=== PATIENT | female | born 1985 | race Caucasian/White ===

== ENCOUNTER 2016-12-24 13:53 | Emergency (ER) | payer BC, MEDICAID ==
[2016-12-24 14:05] VITALS: BP 123/74; PULSE 97; RESP 18; TEMP 98.5; O2SAT 100
--- NOTE | 2016-12-24 15:36 | C.PDOC ---
History Of Present Illness 31 y/o female presents to ED with complaints of being bit by insect on right upper eyelid with associating itching and swelling. Patient is also requesting test, states she has taken two home tests and have been positive but is still unsure. Patient denies clifford, fever, chills, n/v/d or any other complaints at this time. Time Seen by Provider: 12/24/16 14:23 Chief Complaint (Nursing): Eye Problem History Per: Patient History/Exam Limitations: no limitations Onset/Duration Of Symptoms: Days Current Symptoms Are (Timing): Still Present Associated Symptoms: Pain, Swelling, Itching Past Medical History Reviewed: Historical Data, Nursing Documentation, Vital Signs Vital Signs: Last Vital Signs Temp 98.5 F 12/24/16 14:01 Pulse 97 H 12/24/16 14:01 Resp 18 12/24/16 16:04 BP 123/74 12/24/16 14:01 Pulse Ox 100 12/24/16 15:55 - Medical History PMH: Asthma Family History: States: Unknown Family Hx - Social History Hx Alcohol Use: No Hx Substance Use: No - Immunization History Hx Tetanus Toxoid Vaccination: No Hx Influenza Vaccination: No Hx Pneumococcal Vaccination: No Review Of Systems Except As Marked, All Systems Reviewed And Found Negative. Constitutional: Negative for: Fever, Chills Eyes: Positive for: Pain, Eyelid Inflammation Gastrointestinal: Negative for: Nausea, Vomiting, Diarrhea Neurological: Negative for: Headache Physical Exam - Physical Exam Appears: Non-toxic, No Acute Distress Skin: Normal Color, Warm Head: Atraumatic, Normacephalic Eye(s): bilateral: PERRL, EOMI, right: Other (Right upper eyelid swelling, no injected conjuctiva) Ear(s): Bilateral: Normal Oral Mucosa: Moist Gastrointestinal/Abdominal: Soft, No Tenderness, No Guarding, No Rebound Extremity: Normal ROM, Capillary Refill (<2 seconds) Neurological/Psych: Oriented x3 ED Course And Treatment O2 Sat by Pulse Oximetry: 100 (RA) Pulse Ox Interpretation: Normal Medical Decision Making Medical Decision Making: Patient was given Benadryl for inflammatory reaction Test done with + results Patient was discharged and advised to return if symptoms do not improve. Disposition Counseled Patient/Family Regarding: Studies Performed, Diagnosis - Disposition Referrals: [facility] [Outside] Disposition: HOME/ ROUTINE Disposition Time: 15:35 Condition: STABLE Forms: General Discharge Instructions - POA Present On Arrival: None - Clinical Impression Clinical Impression: Insect bite - Scribe Statement The provider has reviewed the documentation as recorded by the Vikas Bustamante All medical record entries made by the Baljinderibneal were at my direction and personally dictated by me. I have reviewed the chart and agree that the record accurately reflects my personal performance of the history, physical exam, medical decision making, and the department course for this patient. I have also personally directed, reviewed, and agree with the discharge instructions and disposition.
== END 2016-12-24 16:05 | disposition home or self-care (01) ==
LOC: C.ER 13:53
DX: S00.261A Insect bite (nonvenomous) of right eyelid and periocular area, initial encounter (principal); W57.XXXA Bitten or stung by nonvenomous insect and other nonvenomous arthropods, initial encounter; Y92.9 Unspecified place or not applicable; Z32.01 Encounter for pregnancy test, result positive

== ENCOUNTER 2017-01-14 17:25 | Emergency (ER) | payer BC, MEDICAID ==
[2017-01-14] MEDS ORDERED: Sodium Chloride 0.9% 1,000 ML IV ONE (18:10)
[2017-01-14] MEDS ORDERED: Sodium Chloride 0.9% 1,000 ML ONE (18:24)
[2017-01-14 18:29] LABS: BASO # 0.1 K/uL (0.0-0.2); BASO % 0.6 % (0.0-2.0); EOS # 0.1 K/uL (0.0-0.7); EOS % 0.8 % (0.0-4.0); HEMATOCRIT 36.1 % (34.0-47.0); LYMPH # 2.3 K/uL (1.0-4.3); LYMPH % 27.5 % (20.0-40.0); MEAN CORPUSCULAR HEMOGLOBIN 29.5 pg (27.0-31.0); MEAN CORPUSCULAR HGB CONC 34.4 g/dL (33.0-37.0); MEAN PLATELET VOLUME 8.1 fL (7.2-11.7); MONO # 0.5 K/uL (0.0-0.8); MONO % 6.3 % (0.0-10.0); RED CELL DISTRIBUTION WIDTH 13.8 % (11.5-14.5); WHITE BLOOD COUNT 8.3 K/uL (4.8-10.8)
--- NOTE | 2017-01-14 18:31 | C.PDOC ---
History Of Present Illness 31-year-old female (), presents to the emergency department with complaints of nausea and non-bloody/non-bilious vomiting for the past week. patient states she is six weeks , and has limited relief with over the counter medication. Patients first OBGYN appointment in 01/29. Denies any vaginal bleeding/discharge, abdominal pain or any other associated symptoms. No other complaints at this time. Time Seen by Provider: 01/14/17 17:58 Chief Complaint (Nursing): GI Problem History Per: Patient History/Exam Limitations: no limitations Onset/Duration Of Symptoms: Days Current Symptoms Are (Timing): Still Present Severity: Moderate Past Medical History Reviewed: Historical Data, Nursing Documentation, Vital Signs Vital Signs: Last Vital Signs Temp 98.7 F 01/14/17 17:36 Pulse 96 H 01/14/17 17:36 Resp 18 01/14/17 17:36 BP 117/81 01/14/17 17:36 Pulse Ox 99 01/14/17 18:32 - Medical History PMH: Asthma, Migraine Family History: States: Unknown Family Hx - Social History Hx Alcohol Use: No Hx Substance Use: No - Immunization History Hx Tetanus Toxoid Vaccination: No Hx Influenza Vaccination: No Hx Pneumococcal Vaccination: No Review Of Systems Except As Marked, All Systems Reviewed And Found Negative. Constitutional: Negative for: Fever, Chills Cardiovascular: Negative for: Chest Pain Respiratory: Negative for: Shortness of Breath Gastrointestinal: Positive for: Nausea, Vomiting. Negative for: Abdominal Pain , Hematochezia, Hematemesis Musculoskeletal: Negative for: Back Pain Neurological: Negative for: Weakness, Numbness, Headache, Dizziness Physical Exam - Physical Exam Appears: Non-toxic, No Acute Distress Skin: Warm, Dry, No Rash Head: Atraumatic, Normacephalic Eye(s): bilateral: Normal Inspection, PERRL, EOMI Nose: Normal Oral Mucosa: Moist Lips: Normal Appearing Neck: Normal ROM Cardiovascular: Rhythm Regular, No Murmur Respiratory: Normal Breath Sounds, No Accessory Muscle Use Gastrointestinal/Abdominal: Soft, No Tenderness Extremity: Normal ROM Neurological/Psych: Oriented x3, Normal Speech ED Course And Treatment - Laboratory Results Result Diagrams: 01/14/17 18:21 01/14/17 18:21 O2 Sat by Pulse Oximetry: 99 Disposition - Disposition Disposition Time: 19:00 Condition: STABLE - Clinical Impression Clinical Impression: Hyperemesis arising during , Migraine - Scribe Statement The provider has reviewed the documentation as recorded by the Scribe (Power Carroll) All medical record entries made by the Scribe were at my direction and personally dictated by me. I have reviewed the chart and agree that the record accurately reflects my personal performance of the history, physical exam, medical decision making, and the department course for this patient. I have also personally directed, reviewed, and agree with the discharge instructions and disposition. Physician Patient Turnover Patient Signed Over To: Milagros Mcnair Handoff Comments: FU REASSESS, DISPO
[2017-01-14 18:45] LABS: CHLORIDE 102 mmol/L (98-107); SODIUM 141 mmol/L (132-148)
[2017-01-14 18:47] LABS: AST/SGOT 27 U/L (14-36); BILIRUBIN,TOTAL 0.5 mg/dL (0.2-1.3); CARBON DIOXIDE 24 mmol/L (22-30); GFR AFRICAN-AMERICAN > 60
[2017-01-14 18:48] LABS: ALB/GLOB RATIO 1.3 (1.0-2.1); ALKALINE PHOSPHATASE 35 U/L (38-126); ALT/SGPT 22 U/L (9-52); BLOOD UREA NITROGEN 13 mg/dL (7-17); CALCIUM 9.1 mg/dl (8.6-10.4); GLUCOSE,RANDOM 78 mg/dL (65-105); TOTAL PROTEIN 6.6 g/dL (6.3-8.3)
[2017-01-14 19:09] LABS: RBC URINE 3 /hpf (0-3); URINE BACTERIA OCC (<OCC); URINE BILIRUBIN NEGATIVE (NEGATIVE); URINE BLOOD NEGATIVE (NEGATIVE); URINE COLOR Yellow (YELLOW); URINE GLUCOSE (UA) NORMAL (Normal); URINE KETONE NEGATIVE (NEGATIVE); URINE LEUKOCYTE ESTERASE 1+ Leu/uL (Negative); URINE PROTEIN NEGATIVE (NEGATIVE); URINE UROBILINOGEN NORMAL mg/dL (0.2-1.0); WBC URINE 7 /hpf (0-5)
[2017-01-14 20:18] VITALS: BP 92/65; PULSE 83; RESP 20; TEMP 97.7; O2SAT 100
== END 2017-01-14 20:18 | disposition home or self-care (01) ==
LOC: C.ER 17:25
DX: O21.0 Mild hyperemesis gravidarum (principal); O26.891 Other specified pregnancy related conditions, first trimester; G43.909 Migraine, unspecified, not intractable, without status migrainosus; Z3A.01 Less than 8 weeks gestation of pregnancy
CPT/HCPCS: 80053; 81001; 84702; 85025; 96361; 96374; 99284; J2405; J7040

== ENCOUNTER 2017-01-28 21:09 | Observation (INO) | payer BC ==
--- NOTE | 2017-01-28 21:24 | C.PDOC ---
History Of Present Illness Patient who is 8 weeks , P:1, presents to the ER with a complaint of vomiting and not being bale to tolerate PO. Denies fever or chills. Time Seen by Provider: 01/28/17 21:24 Chief Complaint (Nursing): Abdominal Pain History Per: Patient History/Exam Limitations: no limitations Onset/Duration Of Symptoms: Days Current Symptoms Are (Timing): Still Present Severity: Moderate Pain Scale Rating Of: 4 (Discomfort) Radiation Of Pain To:: None Quality Of Discomfort: Unable To Describe Associated Symptoms: Vomiting. denies: Fever, Chills Exacerbating Factors: None Alleviating Factors: None Recent travel outside of the [place]: No Abnormal Vaginal Bleeding: No Past Medical History Reviewed: Historical Data, Nursing Documentation, Vital Signs Vital Signs: Last Vital Signs Temp 98 F 01/29/17 00:04 Pulse 90 01/29/17 00:04 Resp 16 01/29/17 00:04 BP 111/69 01/29/17 00:04 Pulse Ox 96 01/29/17 02:41 - Medical History PMH: Asthma, Migraine Surgical History: No Surg Hx Family History: States: Unknown Family Hx - Social History Hx Alcohol Use: No Hx Substance Use: No - Immunization History Hx Tetanus Toxoid Vaccination: No Hx Influenza Vaccination: No Hx Pneumococcal Vaccination: No Review Of Systems Constitutional: Negative for: Fever, Chills Gastrointestinal: Positive for: Vomiting Physical Exam - Physical Exam Appears: Non-toxic Skin: Warm, Dry Head: Atraumatic, Normacephalic Oral Mucosa: Moist Lips: Other (Dry) Chest: Symmetrical, No Tenderness Cardiovascular: Rhythm Regular, No Murmur Respiratory: No Rales, No Rhonchi, No Wheezing Gastrointestinal/Abdominal: Soft, No Tenderness, Other (Gravid) Neurological/Psych: Oriented x3 ED Course And Treatment - Laboratory Results Result Diagrams: 01/28/17 21:42 01/28/17 21:42 O2 Sat by Pulse Oximetry: 96 (Room air) Pulse Ox Interpretation: Normal Progress Note: Blood work and urinalysis ordered. Reevaluation Time: 05:06 Reassessment Condition: Improved ED OBSERVATION Discharge: Yes Date of observation admission: 01/29/17 Time of observation admission: 00:40 - Observation admission statement Patient is being placed in observation because:: hyperemesis - Goals of Observation Goals of observation are:: tolerating po - Progress Note Progress Note: 01/29/17 00:40 vitals stable 01/29/17 02:41 mild improvement Disposition Counseled Patient/Family Regarding: Studies Performed, Diagnosis, Need For Followup - Disposition Disposition: HOME/ ROUTINE Disposition Time: 21:24 Condition: FAIR - Clinical Impression Clinical Impression: Nausea, Vomiting, Hyperemesis arising during - Scribe Statement The provider has reviewed the documentation as recorded by the Baljinderibneal Estrada All medical record entries made by the Vikas were at my direction and personally dictated by me. I have reviewed the chart and agree that the record accurately reflects my personal performance of the history, physical exam, medical decision making, and the department course for this patient. I have also personally directed, reviewed, and agree with the discharge instructions and disposition.
[2017-01-28 21:49] LABS: BASO % 0.5 % (0.0-2.0); EOS % 0.5 % (0.0-4.0); LYMPH # 1.9 K/uL (1.0-4.3); LYMPH % 26.6 % (20.0-40.0); MEAN CELL VOLUME 85.4 fL (81.0-99.0); MEAN CORPUSCULAR HEMOGLOBIN 29.6 pg (27.0-31.0); MEAN CORPUSCULAR HGB CONC 34.7 g/dL (33.0-37.0); MEAN PLATELET VOLUME 8.1 fL (7.2-11.7); MONO # 0.3 K/uL (0.0-0.8); MONO % 4.3 % (0.0-10.0); NEUT # 4.8 K/uL (1.8-7.0); NEUT % 68.1 % (50.0-75.0); RBC 4.4 Mil/uL (3.80-5.20); RED CELL DISTRIBUTION WIDTH 13.8 % (11.5-14.5)
[2017-01-28 22:03] LABS: INR 1.1; PROTHROMBIN TIME 12.2 SECONDS (9.7-12.2)
[2017-01-28 22:13] LABS: ALBUMIN 3.8 g/dL (3.5-5.0)
[2017-01-28 22:16] LABS: ALB/GLOB RATIO 1.2 (1.0-2.1); AST/SGOT 21 U/L (14-36); BLOOD UREA NITROGEN 10 mg/dL (7-17); GFR AFRICAN-AMERICAN > 60; GFR NON-AFRICAN AMERICAN > 60
[2017-01-28 22:17] LABS: ALT/SGPT 26 U/L (9-52); CALCIUM 8.6 mg/dl (8.6-10.4)
[2017-01-28] MEDS ORDERED: Sodium Chloride 0.9% 1,000 ML IV SCH ×2 (22:30→23:45)
[2017-01-28 23:49] LABS: SQUAMOUS EPITHIAL 5 /hpf (0-5); URINE BACTERIA RARE (<OCC); URINE BILIRUBIN NEGATIVE (NEGATIVE); URINE BLOOD NEGATIVE (NEGATIVE); URINE CLARITY Hazy (Clear); URINE COLOR Yellow (YELLOW); URINE GLUCOSE (UA) NORMAL (Normal); URINE LEUKOCYTE ESTERASE NEG Leu/uL (Negative); URINE NITRATE NEGATIVE (NEGATIVE); URINE PROTEIN NEGATIVE (NEGATIVE); URINE UROBILINOGEN NORMAL mg/dL (0.2-1.0)
[2017-01-29] MEDS ORDERED: Sodium Chloride 0.9% 1,000 ML IV ONE ×2 (00:53→02:45)
[2017-01-29] MEDS ORDERED: Sodium Chloride 0.9% 1,000 ML ONE (02:49)
[2017-01-29 05:37] VITALS: BP 111/77; PULSE 69; RESP 20; TEMP 98.9; O2SAT 98
== END 2017-01-29 05:06 | disposition home or self-care (01) ==
LOC: C.ER 21:09 → C.9OBSV 01-29 00:39
PROVIDERS: ADMIT Emergency Medicine; ATTEND Emergency Medicine
DX: O21.0 Mild hyperemesis gravidarum (principal); Z3A.08 8 weeks gestation of pregnancy
CPT/HCPCS: 80053; 81001; 84702; 85025; 85610; 85730; 96374; J2405; J7040

== ENCOUNTER 2017-03-23 16:09 | Emergency (ER) | payer BC, MEDICAID ==
[2017-03-23 16:56] VITALS: RESP 18
[2017-03-23 17:31] LABS: RBC URINE 1 /hpf (0-3); URINE BILIRUBIN NEGATIVE (NEGATIVE); URINE BLOOD NEGATIVE (NEGATIVE); URINE COLOR Yellow (YELLOW); URINE GLUCOSE (UA) NORMAL (Normal); URINE KETONE NEGATIVE (NEGATIVE); URINE LEUKOCYTE ESTERASE TRACE Leu/uL (Negative); URINE PROTEIN NEGATIVE (NEGATIVE); URINE UROBILINOGEN NORMAL mg/dL (0.2-1.0); WBC URINE 2 /hpf (0-5)
[2017-03-23 19:29] LABS: BASO % 0.5 % (0.0-2.0); EOS # 0.1 K/uL (0.0-0.7); EOS % 0.9 % (0.0-4.0); HEMATOCRIT 33.4 % (34.0-47.0); LYMPH # 1.8 K/uL (1.0-4.3); MEAN CELL VOLUME 88.5 fL (81.0-99.0); MEAN CORPUSCULAR HEMOGLOBIN 30.4 pg (27.0-31.0); MEAN CORPUSCULAR HGB CONC 34.4 g/dL (33.0-37.0); MEAN PLATELET VOLUME 7.8 fL (7.2-11.7); MONO # 0.4 K/uL (0.0-0.8); MONO % 5.1 % (0.0-10.0); WHITE BLOOD COUNT 7.9 K/uL (4.8-10.8)
[2017-03-23 19:34] LABS: CHLORIDE 104 mmol/L (98-107); SODIUM 138 mmol/L (132-148)
[2017-03-23 19:35] LABS: POTASSIUM 4.7 mmol/L (3.6-5.2)
[2017-03-23 19:37] LABS: ALB/GLOB RATIO 1.2 (1.0-2.1); ALKALINE PHOSPHATASE 39 U/L (38-126); ALT/SGPT 62 U/L (9-52); AST/SGOT 38 U/L (14-36); BILIRUBIN,TOTAL 0.2 mg/dL (0.2-1.3); BLOOD UREA NITROGEN 11 mg/dL (7-17); CARBON DIOXIDE 24 mmol/L (22-30); GFR AFRICAN-AMERICAN > 60; GLUCOSE,RANDOM 75 mg/dL (65-105); TOTAL PROTEIN 6.6 g/dL (6.3-8.3)
[2017-03-23 19:38] LABS: CALCIUM 9.1 mg/dl (8.6-10.4)
[2017-03-23 21:18] VITALS: BP 99/66; PULSE 77; TEMP 98.6; O2SAT 99
--- NOTE | 2017-03-23 21:43 | C.PDOC ---
Time Seen by Provider: 03/23/17 18:08 Chief Complaint (Nursing): Female Genitourinary History Per: Patient Onset/Duration Of Symptoms: Days (1) Current Symptoms Are (Timing): Still Present Severity: Moderate Quality Of Discomfort: Cramping Alleviating Factors: None Additional History Per: Prior Records Abnormal Vaginal Bleeding: Yes Past Medical History Reviewed: Historical Data, Nursing Documentation, Vital Signs Vital Signs: Last Vital Signs Temp 98.6 F 03/23/17 21:15 Pulse 77 03/23/17 21:15 Resp 18 03/23/17 21:15 BP 99/66 L 03/23/17 21:15 Pulse Ox 99 03/23/17 21:15 - Medical History PMH: Asthma, Migraine Surgical History: No Surg Hx Family History: States: Unknown Family Hx - Social History Hx Alcohol Use: No Hx Substance Use: No - Immunization History Hx Tetanus Toxoid Vaccination: No Hx Influenza Vaccination: No Hx Pneumococcal Vaccination: No Review Of Systems Except As Marked, All Systems Reviewed And Found Negative. Constitutional: Negative for: Fever, Weakness Cardiovascular: Negative for: Chest Pain Respiratory: Negative for: Shortness of Breath Gastrointestinal: Negative for: Diarrhea Genitourinary: Positive for: Vaginal Bleeding (spotting). Negative for: Dysuria Musculoskeletal: Negative for: Neck Pain, Back Pain Skin: Negative for: Rash Neurological: Negative for: Weakness, Numbness Physical Exam - Physical Exam Appears: Non-toxic, No Acute Distress Skin: Normal Color, Warm, Dry, No Rash Head: Atraumatic, Normacephalic Eye(s): bilateral: Normal Inspection, PERRL, EOMI Neck: Normal ROM, Supple Cardiovascular: Rhythm Regular Respiratory: Normal Breath Sounds Gastrointestinal/Abdominal: Soft, Tenderness (mild suprapubic), No Guarding, No Rebound Back: No CVA Tenderness Extremity: Normal ROM Neurological/Psych: Oriented x3, Normal Motor, Normal Sensation ED Course And Treatment - Laboratory Results Result Diagrams: 03/23/17 19:00 03/23/17 19:00 Urine POC: Positive O2 Sat by Pulse Oximetry: 99 Pulse Ox Interpretation: Normal - CT Scan/US Pelvic US Other Rad Studies (CT/US): Read By Radiologist, Radiology Report Reviewed CT/US Interpretation: 17 wk single live IUP. No FF. Reassessment Condition: Improved Disposition Counseled Patient/Family Regarding: Studies Performed, Diagnosis, Need For Followup, Rx Given - Disposition Disposition: HOME/ ROUTINE Disposition Time: 21:42 Condition: STABLE Additional Instructions: Follow up with your Lodging House Keeper doctor this week for further evaluation and treatment. Return to the ER if you develop fever, vomiting, dizziness, heavy bleeding, worsening of symptoms or if you have any other concerns. Instructions: Threatened Miscarriage (ED) Print Language: LUX[place]BOURGISH - Clinical Impression Clinical Impression: Threatened in second trimester
--- NOTE | 2017-03-24 10:28 | US ---
Indication: Pain/bleeding Comparison: Ob ultrasound performed 03/22/17 Technique: Real-time ultrasound was performed through the pelvis. Findings: There is a single living fetus in variable presentation. Amniotic fluid volume is within normal limits. Anterior placenta. The placenta is not previa. There are no adnexal masses or cysts evident. Cervix length measures approximately 3.2 cm. Measurements and calculations: Fetus has a composite sonographic age of 17 weeks 1 day. This calculation is based on the biparietal diameter, head circumference, abdominal circumference, and femur length. Estimated heart rate 148.2 beats per min. The study was performed for the emergent evaluation of pain/bleeding, and the whole anatomic survey of the fetus was not performed. This should be performed on an outpatient elective basis as clinically warranted. Impression: Single living fetus with a composite sonographic age of 17 weeks 1 day. Estimated heart rate 148.2 beats per min. Preliminary impression was provided by virtual radiologic.
== END 2017-03-23 21:49 | disposition home or self-care (01) ==
LOC: C.ER 16:09
DX: O20.0 Threatened abortion (principal); Z3A.17 17 weeks gestation of pregnancy

== ENCOUNTER 2017-08-26 18:12 | Inpatient (IN) | payer BC, OTHER ==
[2017-08-26] MEDS ORDERED: Magnesium Sulfate 4 gm/100 ml 4 GM/100 ML BAG IVPB ONE ×2 (18:27→19:46)
--- NOTE | 2017-08-26 18:30 | OBHP ---
Datetime: 08/26/2017 18:19 IP Adm Impression: Term, intrauterine IP Chief Complaint Other: blurry vision/hedache from 2 days IP Admit Plan: Admit to unit; Initiate labor induction protocol Admit Comment, IP Provider: at 38.3weeks came with no movements since yesterday 12 pm. pt c/o hedache started 2 days ago coming from back to front and blurry scale from yesterday. pt has a h /o migraine and thought it was normal and never took pain meds. pt came to check on fetus as no movem ents since yesterday and hedache persisted. pt states bp was high in last vist in clinic. obhx 1 x pmh den med pnv all nkda psh denies soch den bss no fh cephalic a/p at 38.3weeks demise r/o preeclampsia admit to l_d npo/ivf start mgso4 loading dosage and than maintaince labs pih work up urine drug screen cont perla anticipate vaginal delivery Pelvic Type - PN: Adequate Extremities - PN: Normal Abdomen - PN: Normal Back - PN: Normal Breast - PN: Not Done Lungs - PN: Normal Heart - PN: Normal Thyroid - PN: Not Done Neurologic - PN: Normal HEENT - PN: Normal General - PN: Normal Contraction Comments Provider: none Comments, ACOG Physical Exam: gravid,non tender ext no edema,no calf ten IP Chief Complaint: Decreased movement Genitourinary Exam: Normal DTRs - PN: Normal
[2017-08-26 19:24] LABS: BASO % 0.5 % (0.0-2.0); EOS # 0.1 K/uL (0.0-0.7); EOS % 0.6 % (0.0-4.0); HEMOGLOBIN 13.2 g/dL (11.0-16.0); LYMPH % 23.4 % (20.0-40.0); MEAN CELL VOLUME 85.7 fL (81.0-99.0); MEAN CORPUSCULAR HEMOGLOBIN 30.1 pg (27.0-31.0); MEAN CORPUSCULAR HGB CONC 35.1 g/dL (33.0-37.0); MEAN PLATELET VOLUME 9.2 fL (7.2-11.7); MONO # 0.4 K/uL (0.0-0.8); MONO % 4.2 % (0.0-10.0); NEUT # 6.2 K/uL (1.8-7.0); NEUT % 71.3 % (50.0-75.0); RBC 4.38 Mil/uL (3.80-5.20); WHITE BLOOD COUNT 8.7 K/uL (4.8-10.8)
[2017-08-26 19:30] LABS: SQUAMOUS EPITHIAL 9 /hpf (0-5); URINE BACTERIA RARE (<OCC); URINE BILIRUBIN NEGATIVE (NEGATIVE); URINE BLOOD NEGATIVE (NEGATIVE); URINE CLARITY Hazy (Clear); URINE COLOR Yellow (YELLOW); URINE GLUCOSE (UA) NORMAL (Normal); URINE NITRATE NEGATIVE (NEGATIVE); URINE PROTEIN NEGATIVE (NEGATIVE); URINE UROBILINOGEN NORMAL mg/dL (0.2-1.0)
[2017-08-26] MEDS ORDERED: Nalbuphine 20 mg/ml Inj (1 ml) IVP PRN (19:30)
[2017-08-26 19:31] LABS: URINE LEUKOCYTE ESTERASE NEGATIVE Leu/uL (Negative)
[2017-08-26 19:34] LABS: ALB/GLOB RATIO 1.1 (1.0-2.1); ALBUMIN 3.6 g/dL (3.5-5.0); ALT/SGPT 17 U/L (9-52); AST/SGOT 22 U/L (14-36); BLOOD UREA NITROGEN 14 mg/dL (7-17); CALCIUM 9.2 mg/dl (8.6-10.4); GFR AFRICAN-AMERICAN > 60; GFR NON-AFRICAN AMERICAN > 60; URIC ACID 5.1 mg/dL (2.2-7.5)
[2017-08-26 19:37] LABS: INR 0.9; PROTHROMBIN TIME 10.1 SECONDS (9.7-12.2)
[2017-08-26 19:39] LABS: BARBITURATES, UR NEGATIVE (NEGATIVE); BENZODIAZEPINES, UR NEGATIVE (NEGATIVE); OPIATES, UR NEGATIVE (NEGATIVE); PHENCYCLIDINE, UR NEGATIVE (NEGATIVE)
[2017-08-26] MEDS ORDERED: Magnesium Sulfate 20 gm 20,000 MG/500 ML BAG IV ONE (19:47)
[2017-08-26] MEDS: Lactated Ringer's 1,000 ML IV SCH (20:07)
[2017-08-26] MEDS: Magnesium Sulfate 20 gm 20 GM/500 ML BAG IV SCH (20:38)
[2017-08-26] MEDS ORDERED: Midazolam 2 MG/2 ML VIAL IVP PRN (21:14)
--- NOTE | 2017-08-26 21:45 | US ---
EXAM: US After First Trimester, Transabdominal CLINICAL HISTORY: 32 years old, female; Signs and symptoms; Other: No movement; TECHNIQUE: Real-time transabdominal obstetrical ultrasound of the maternal pelvis and a second or third trimester with image documentation. COMPARISON: No relevant prior studies available. FINDINGS: Fetus: Intrauterine gestation. Heart rate: No heartbeat detected. Presentation: Cephalic. Placenta: Anterior placenta. No placenta previa or abruption. Amniotic fluid: FÁTIMA = 8.7 cm. Anatomy: Free fluid about liver. BIOMETRICS Gestational age by US: Estimated gestational age of 34 weeks 6 days by measurements. EFW: Estimated weight of 2467 g. BPD: 8.8 cm, correlating with 35 weeks 5 days. HC: 31.4 cm, correlating with 35 weeks 2 days. AC: 31.0 cm, correlating with 35 weeks 0 days. FL: 6.5 cm, correlating with 33 weeks 2 days. MATERNAL: Uterus: Unremarkable. No myometrial mass. Cervix: No cervical dilatation or effacement. Free fluid: No significant free fluid. IMPRESSION: 1. Findings compatible with demise. EXAM: US Biophysical Profile Without Non-Stress Testing CLINICAL HISTORY: 32 years old, female; Signs and symptoms; Other: No movement; TECHNIQUE: Real-time ultrasound of the maternal pelvis for biophysical profile evaluation with image documentation. COMPARISON: No relevant prior studies available. FINDINGS: breathing movements: Absent. Score 0/2. Gross body movements: Absent. Score 0/2. tone: Absent. Score 0/2. Qualitative amniotic fluid volume: Within normal limits. Score 2/2. IMPRESSION: Abnormal biophysical profile, 08/06.
[2017-08-26] MEDS ORDERED: Labetalol 25mg/5ml Syringe IVP STA (22:05)
[2017-08-26] MEDS ORDERED: Midazolam 2 MG/2 ML VIAL ONE (22:47)
[2017-08-27] MEDS ORDERED: Apap-Butalbital-Caffeine 325-50-40mg Tab PO PRN (04:04)
[2017-08-27] MEDS ORDERED: Bupivacaine HCl/FentaNYL Cit 100 ML EPI ONE (05:49)
--- NOTE | 2017-08-27 11:30 | OBDS ---
DELIVERY PERSONNEL Delivery Doctor: Britney Gomez MD Art Critic: Chay Rose RN MATERNAL INFORMATION Delivery Anesthesia: Epidural; Spinal Medications in Delivery: pitocin Placenta Cultured: No Maternal Complications: Other Other Maternal Complications: elevated blood pressure and blurred vision Provider Comments: pt fully dilated with membranes protruding through vagina with spontanous deliver y in cephalic presentation en call, meconium type dark fluid noted. umbilcs cord clamped and cut by f ather of baby as requested. baby naded to rn with assistance. spontenud deliveyr of intact placenta w ith membrnes. fundus firm. intact perienum. no complicatoins ebl 100ml deceseased female infnat delivered LABOR SUMMARY EDC: 09/06/2017 00:00 No. Babies in Womb: 1 Attempted: No Labor Anesthesia: Epidural LABOR INFORMATION Onset of Labor: 08/26/2017 22:04 Complete Dilatation: 08/27/2017 10:10 Cervical Ripening Agents: Cervidil (Annotations: romoved) Oxytocin: N/A Group B Beta Strep: Negative (Annotations: 08/11/2017) Steroids Given: None Reason Steroids Not Administered: Not Applicable STAGES OF LABOR Stage 1 hrs: 12 Stage 1 min: 6 BABY A INFORMATION Method of Delivery: Vaginal Born in Route : No : N/A INFANT INFORMATION BABY A Gestational Age at Delivery: 38.4 Gestational Status: Term
[2017-08-27] MEDS: Magnesium Sulfate 20 gm 20 GM/500 ML BAG IV SCH ×2 (11:33)
[2017-08-27] MEDS ORDERED: Magnesium Sulfate 20 gm 20,000 MG/500 ML BAG IV ONE (11:34)
[2017-08-27] MEDS: Lactated Ringer's 1,000 ML IV SCH (17:32)
--- NOTE | 2017-08-27 19:58 | OBPPN ---
Datetime: 08/27/2017 19:53 PP Pain Prov: Within normal limits PP Nausea Prov: Denies PP Flatus Prov: No PP BM Prov: No PP Breasts Prov: Normal PP Heart Prov: Normal PP Lungs Prov: Normal PP Abdomen/Uterus Prov: Normal PP Lochia Prov: Normal PP Vulva/Perineum Prov: Normal PP CVA Tenderness Prov: Normal PP Extremities Prov: Normal PP Comments Phys Exam Prov: GEN NAD AA ox 3 RESP: CTAB?l CVS RRR, +S1/S2 ABD: Soft, NT, ND, no guaridn,g no rebound tendnerss no rigidty, no ruq/epigastric tendnreer VE; moderate lochia EXT: negative babak's sign, negative calf tendnerss DTR 2+b/l PP Progress Note Prov: s/p for IUFD with preelcmapisa wiht severe feature on mgso4 pt reports feelign sad, dneis nay headahce, blurry vision, ruq/epigsatri pain, abodmina pain VS as above PE as above A/p S/p for IUDF with severe preeclmapsia -Mg level q 6 hours -VS perprotocol -Ins/ots -pain managment -bereavement servies/ pastroal care -social work consult - am cbc Vital Signs Provider PP: Reviewed
[2017-08-28 08:12] LABS: BASO % 0.4 % (0.0-2.0); EOS # 0.1 K/uL (0.0-0.7); EOS % 0.6 % (0.0-4.0); LYMPH % 20.7 % (20.0-40.0); MEAN CELL VOLUME 86.3 fL (81.0-99.0); MEAN CORPUSCULAR HEMOGLOBIN 30.4 pg (27.0-31.0); MEAN CORPUSCULAR HGB CONC 35.3 g/dL (33.0-37.0); MEAN PLATELET VOLUME 8.7 fL (7.2-11.7); MONO # 0.4 K/uL (0.0-0.8); MONO % 4.1 % (0.0-10.0); NEUT # 7.2 K/uL (1.8-7.0); NEUT % 74.2 % (50.0-75.0); RBC 3.68 Mil/uL (3.80-5.20); RED CELL DISTRIBUTION WIDTH 14.7 % (11.5-14.5); WHITE BLOOD COUNT 9.7 K/uL (4.8-10.8)
[2017-08-28 08:18] LABS: HEMOGLOBIN 11.2 g/dL (11.0-16.0)
[2017-08-28 08:30] LABS: MAGNESIUM 4.5 mg/dL (1.6-2.3)
[2017-08-28 11:04] LABS: ALBUMIN 2.9 g/dL (3.5-5.0); ALT/SGPT 21 U/L (9-52); AST/SGOT 29 U/L (14-36); BLOOD UREA NITROGEN 11 mg/dL (7-17); CALCIUM 7.1 mg/dl (8.6-10.4); GFR AFRICAN-AMERICAN > 60; GFR NON-AFRICAN AMERICAN > 60
--- NOTE | 2017-08-28 19:37 | OBDCSUM ---
Datetime: 08/28/2017 14:43 Discharged to, Provider: Home Follow up at, Provider: IN THE CLINIC IN TWO WEEKS TIME. Disch Instr Activity: Normal activity; May be up to bathroom; May be up for meals; May Shower Disch Instr Diet: Regular Discharge Diagnosis, Provider: Term Delivered Discharge Time: 08/28/2017 14:45 Follow up in weeks, Provider: CALL FOR APPOINTMENT. Disch Referrals: Monitoring Manager Contraception discussed, Prov: No Disch Activity Restrictions: No exercising; No lifting; No driving; No sexual activity; Nothing in v agina - Cherry, tampons, douche Discharge Diagnosis Prov Other: Intrauterine demise Mild pre-eclampsia Anemia
[2017-08-29 06:57] VITALS: BP 129/67; PULSE 97; RESP 18; TEMP 98; O2SAT 100
== END 2017-08-28 15:15 | disposition home or self-care (01) | DRG 775 ==
LOC: C.EROB 18:12 → UNDOADMIN 18:14 → C.4D 18:14
PROVIDERS: ADMIT Obstetrics & Gynecology; ATTEND Obstetrics & Gynecology
PROC: 10D07Z8 Extraction of Products of Conception, Other, Via Natural or Artificial Opening (ICD-10-PCS; principal; 2017-08-26)
DX: O14.14 Severe pre-eclampsia complicating childbirth (principal); O36.4XX0 Maternal care for intrauterine death, not applicable or unspecified; O99.02 Anemia complicating childbirth; Z3A.38 38 weeks gestation of pregnancy; Z37.1 Single stillbirth

== ENCOUNTER 2018-01-31 10:51 | Emergency (ER) | payer BC ==
[2018-01-31] MEDS ORDERED: Sodium Chloride 0.9% 1,000 ML IV ONE (11:24)
[2018-01-31 11:44] LABS: BASO % 0.3 % (0.0-2.0); EOS % 0.4 % (0.0-4.0); LYMPH # 1.6 K/uL (1.0-4.3); LYMPH % 20.1 % (20.0-40.0); MEAN CELL VOLUME 84.4 fL (81.0-99.0); MEAN CORPUSCULAR HEMOGLOBIN 29.5 pg (27.0-31.0); MONO # 0.4 K/uL (0.0-0.8); MONO % 5.2 % (0.0-10.0); NEUT # 5.8 K/uL (1.8-7.0); RBC 4.65 Mil/uL (3.80-5.20); RED CELL DISTRIBUTION WIDTH 15.2 % (11.5-14.5); WHITE BLOOD COUNT 7.9 K/uL (4.8-10.8)
[2018-01-31 11:48] LABS: HEMOGLOBIN 13.7 g/dL (11.0-16.0)
[2018-01-31 11:58] LABS: ALB/GLOB RATIO 1.4 (1.0-2.1); ALBUMIN 4.4 g/dL (3.5-5.0); ALT/SGPT 24 U/L (9-52); AST/SGOT 23 U/L (14-36); BLOOD UREA NITROGEN 13 mg/dL (7-17); CALCIUM 9.3 mg/dl (8.6-10.4); GFR AFRICAN-AMERICAN > 60; GFR NON-AFRICAN AMERICAN > 60; LIPASE 62 U/L (23-300)
[2018-01-31 11:59] LABS: SQUAMOUS EPITHIAL 3 /hpf (0-5); URINE BILIRUBIN NEGATIVE (NEGATIVE); URINE BLOOD NEGATIVE (NEGATIVE); URINE CLARITY Hazy (Clear); URINE COLOR Yellow (YELLOW); URINE GLUCOSE (UA) NORMAL (Normal); URINE LEUKOCYTE ESTERASE 1+ Leu/uL (Negative); URINE PROTEIN NEGATIVE (NEGATIVE); URINE UROBILINOGEN NORMAL mg/dL (0.2-1.0)
--- NOTE | 2018-01-31 13:01 | US ---
Date of service: 01/31/2018 HISTORY: ; last menstrual period is reported 01/16/2018 suggesting 2 week 1 day gestation. COMPARISON: None available. TECHNIQUE: Transabdominal and transvaginal pelvic ultrasound was performed with longitudinal and transverse images submitted for interpretation. FINDINGS: UTERUS: Measures 10.8 x 6.9 x 7.9 cm. Uterus is enlarged accordingly with an aversion but no discrete myometrial mass identified. A gestational sac is identified within the endometrial cavity with a mean sac diameter of 2.13 cm. Yolk sac and pole are also identified with cardiac activity recorded 120 beats per minute. Based on mean crown-rump length measurement of 0.33, estimated gestational age is 6 weeks 0 days which is discordant from LMP derived dates of 2 weeks 1 day. Yolk sac measures 0.21 cm. Estimated date of delivery 09/23/2018. CERVIX: 4.3 cm without focal mass appreciable. RIGHT OVARY: Measures 4.0 x 2.3 x 3.9 cm. No solid mass. Normal flow. LEFT OVARY: Measures 3.1 x 1.7 x 2.9 cm. No solid mass. Normal flow. FREE FLUID: No significant free fluid noted. OTHER FINDINGS: None. IMPRESSION: A single viable intrauterine gestation is identified with average ultrasonic age of 6 weeks 0 days which is discrepant from LMP derived dates as discussed above. No decidual hemorrhage appreciable. No suspicious adnexal findings.
--- NOTE | 2018-01-31 13:51 | C.PDOC ---
History Of Present Illness 32 year old female ( A1) presents to the emergency department presents to the emergency department with complaints of nausea and vomiting for the last two days. Patient reports a history of hyperemesis, unrelieved by home medications. Patient denies vaginal bleeding, abdominal pain, and diarrhea. Time Seen by Provider: 01/31/18 11:07 Chief Complaint (Nursing): Abdominal Pain History Per: Patient History/Exam Limitations: no limitations Onset/Duration Of Symptoms: Days (2) Current Symptoms Are (Timing): Still Present Associated Symptoms: Nausea, Vomiting Past Medical History Reviewed: Historical Data, Nursing Documentation, Vital Signs Vital Signs: Last Vital Signs Temp 98.9 F 01/31/18 14:06 Pulse 68 01/31/18 14:06 Resp 20 01/31/18 14:06 BP 125/77 01/31/18 14:06 Pulse Ox 99 01/31/18 14:06 - Medical History PMH: Asthma, Migraine Denies: Depression, Diabetes, HTN Surgical History: No Surg Hx - [facility] Procedures EXTRACTION OF PRODUCTS OF CONCEPTION, OTHER, VIA OPENING (08/26/17) Family History: States: No Known Family Hx - Social History Hx Alcohol Use: No Hx Substance Use: No - Immunization History Hx Tetanus Toxoid Vaccination: No Hx Influenza Vaccination: No Hx Pneumococcal Vaccination: No Review Of Systems Except As Marked, All Systems Reviewed And Found Negative. Gastrointestinal: Positive for: Nausea, Vomiting Physical Exam - Physical Exam Appears: Non-toxic, No Acute Distress Skin: Warm, Dry Head: Atraumatic, Normacephalic Eye(s): bilateral: Normal Inspection Nose: Normal Oral Mucosa: Moist Throat: Normal, No Erythema, No Exudate Neck: Normal, Supple Chest: Symmetrical, No Tenderness Cardiovascular: Rhythm Regular, No Murmur Respiratory: Normal Breath Sounds, No Rales, No Rhonchi, No Wheezing Gastrointestinal/Abdominal: Normal Exam, Soft, No Tenderness, No Guarding, No Rebound Neurological/Psych: Oriented x3, Normal Speech, Normal Cognition ED Course And Treatment - Laboratory Results Result Diagrams: 01/31/18 11:48 01/31/18 11:40 O2 Sat by Pulse Oximetry: 97 (RA) Medical Decision Making Medical Decision Making: Impression: Vomiting due to . Plan: BBK Type and Screen Beta-HCG Quantitative CMP Lipase CBC Pepcid 20mg IVP NaCl IV Fluids Toradol 30mg IVP Zofran 4mg IVP Urinalysis US OB Transvaginal 13:50 Re-Eval: Improved. Patient clear for discharge and advised to follow up with her [facility] within two days. Disposition Counseled Patient/Family Regarding: Studies Performed, Diagnosis, Need For Followup, Rx Given - Disposition Referrals: [facility] [Outside] Disposition: HOME/ ROUTINE Disposition Time: 13:49 Condition: STABLE Additional Instructions: follow up with your doctor or medical clinic within 2 days call to make an appointment continue your home medications return to ER if symptoms worsens or progress there is currently no protein in your urine maintain your blood pressure Prescriptions: Metoclopramide [Reglan] 10 mg PO TID PRN #12 tab PRN Reason: Nausea/Vomiting Instructions: Nausea and Vomiting of Forms: [facility] ([place]), General Discharge Instructions - Clinical Impression Clinical Impression: Vomiting, Nausea - Scribe Statement The provider has reviewed the documentation as recorded by the Scribe (Chavez Palma) Provider Attestation: All medical record entries made by the Scribe were at my direction and personally dictated by me. I have reviewed the chart and agree that the record accurately reflects my personal performance of the history, physical exam, medical decision making, and the department course for this patient. I have also personally directed, reviewed, and agree with the discharge instructions and disposition.
[2018-01-31 14:07] VITALS: BP 125/77; PULSE 68; RESP 20; TEMP 98.9
[2018-01-31 14:20] VITALS: O2SAT 97
== END 2018-01-31 14:10 | disposition home or self-care (01) ==
LOC: C.ER 10:51
DX: O21.9 Vomiting of pregnancy, unspecified (principal); Z3A.01 Less than 8 weeks gestation of pregnancy
CPT/HCPCS: 76817; 80053; 81001; 83690; 84702; 85025; 86850; 86900; 96361; 96374; 96375; 99284; J2405; J7030